=== PATIENT | female | born 1985 | race Caucasian/White ===

== ENCOUNTER 2016-04-24 16:55 | Emergency (ER) | payer BC ==
[2016-04-24 18:23] VITALS: BP 127/76
--- NOTE | 2016-04-24 18:36 | UC ---
Throat Pain/Nasal Hernesto HPI - HPI Summary HPI Summary: increased sinus pressure, pain and fever. post nasal drip as well for over a week. - History of Current Complaint Chief Complaint: UCGeneralIllness Stated Complaint: SINUSES Time Seen by Provider: 04/24/16 18:24 Hx Obtained From: Patient Hx Last Menstrual Period: 04/18/16 Onset/Duration: Sudden Onset, Lasting Days Severity: Severe Pain Intensity: 7 Pain Scale Used: 0-10 Numeric Associated Signs & Symptoms: Positive: Sinus Discomfort, Nasal Discharge, Fever - Epiglottits Risk Factors Epiglottis Risk Factors: Negative - Allergies/Home Medications Allergies/Adverse Reactions: Allergies Allergy/AdvReac Type Severity Reaction Status Date / Time No Known Allergies Allergy Verified 04/24/16 18:16 Home Medications: Home Medications Acetaminophen TAB* [Tylenol TAB*] 1,000 mg PO ONCE 04/24/16 [History Confirmed 04/24/16] Guaifenesin [Sb Mucus Relief] 400 mg PO ONCE 04/24/16 [History Confirmed ] Ibuprofen TAB* [Motrin TAB* 800 MG] 800 mg PO ONCE 04/24/16 [History Confirmed 04/24/16] Metoprolol Tartrate TAB* [Lopressor TAB*] 25 mg PO BID 04/24/16 [History Confirmed 04/24/16] Norethin Acet & Estrad-Fe [Microgestin Fe 1-20 mg-Mcg] 1 tab PO DAILY 04/24/16 [ History Confirmed 04/24/16] Pseudoephedrine TAB* [Sudafed TAB*] 60 mg PO ONCE 04/24/16 [History Confirmed ] PMH/Surg Hx/FS Hx/Imm Hx Previously Healthy: Yes Cardiovascular History Of: Reports: Cardiac Disorders - PACs/PVCs, Hypertension - Surgical History Surgical History: Yes Surgery Procedure, Year, and Place: wisdom teeth extraction - Family History Known Family History: Positive: Hypertension - Social History Alcohol Use: None Substance Use Type: None Smoking Status (MU): Never Smoked Tobacco Review of Systems Constitutional: Fever, Chills Skin: Negative Eyes: Negative ENT: Sore Throat, Nasal Discharge Respiratory: Negative Cardiovascular: Negative Gastrointestinal: Negative Genitourinary: Negative Motor: Negative Neurovascular: Negative Musculoskeletal: Negative Neurological: Headache Psychological: Negative All Other Systems Reviewed And Are Negative: Yes Physical Exam Triage Information Reviewed: Yes Appearance: Well-Nourished, Ill-Appearing, Pain Distress Vital Signs: Initial Vital Signs Temp 98.4 F 04/24/16 18:19 Pulse 78 04/24/16 18:19 Resp 16 04/24/16 18:19 BP 127/76 04/24/16 18:19 Pulse Ox 100 04/24/16 18:19 Vital Signs Reviewed: Yes Eye Exam: Normal Eyes: Positive: Conjunctiva Clear ENT: Positive: Pharynx normal, Pharyngeal erythema, Nasal congestion, Nasal drainage, TMs normal, TM bulging Dental Exam: Normal Neck exam: Normal Neck: Positive: Supple, Nontender, No Lymphadenopathy Respiratory Exam: Normal Respiratory: Positive: Chest non-tender, Lungs clear, Normal breath sounds Cardiovascular Exam: Normal Cardiovascular: Positive: RRR, No Murmur, Pulses Normal Abdominal Exam: Normal Abdomen Description: Positive: Nontender, No Organomegaly, Soft Bowel Sounds: Positive: Present Musculoskeletal Exam: Normal Musculoskeletal: Positive: Strength Intact, ROM Intact, No Edema Neurological Exam: Normal Neurological: Positive: Alert, Muscle Tone Normal Psychological Exam: Normal Skin Exam: Normal Throat Pain/Nasal Course/Dx - Course Course Of Treatment: hx obtained exam performed, meds given and prescribed for sinusitis - Differential Dx/Diagnosis Differential Diagnosis/HQI/PQRI: Influenza, Laryngitis, Otitis Media, Pharyngitis, Sinusitis, Tonsillitis, URI Provider Diagnoses: sinusitis Discharge - Discharge Plan Condition: Stable Disposition: HOME Prescriptions: Amoxicillin/Clavulanate TAB* [Augmentin TAB 875*] 875 mg PO BID #19 tab Patient Education Materials: Sinusitis (ED) Additional Instructions: take the medication as prescribed. 1. Augmentin twice a day 2. Prednisone 2 tabs daily for 5 days. 3. Ibuprofen or tylenol as needed for pain or fever.
[2016-04-24] MEDS ORDERED: Amoxicillin/Clavulanate TAB* 875 MG PO ONE (18:38)
[2016-04-24] MEDS ORDERED: Amoxicillin/Clavulanate TAB* 875 MG PO SCH (21:00)
== END 2016-04-24 18:49 | disposition home or self-care (01) ==
LOC: UCCORT 16:55
DX: J32.9 Chronic sinusitis, unspecified (principal)
CPT/HCPCS: 99202; A9270-GY; G0463